=== PATIENT | male | born 1985 | race Caucasian/White ===

== ENCOUNTER 2018-09-26 08:54 | Emergency (ER) | payer OTHER ==
[~2018-09-26] VITALS: Ht 185.4 cm; Wt 105.2 kg
[2018-09-26] MEDS ORDERED: NAPROSYN500 MG PO ×2 (09:06→09:10)
[2018-09-26] MEDS ORDERED: KEFLEX500 M1 PO ×2 (09:06→09:10)
[2018-09-26] MEDS ORDERED: SEPTDS PO ×2 (09:06→09:10)
== END 2018-09-26 10:45 | disposition home or self-care (01) ==
LOC: ED 08:54
DX: L03.116 Cellulitis of left lower limb (principal); M70.42 Prepatellar bursitis, left knee; M70.41 Prepatellar bursitis, right knee; R03.0 Elevated blood-pressure reading, without diagnosis of hypertension; Y93.89 Activity, other specified